=== PATIENT | female | born 1985 | race Caucasian/White ===

== ENCOUNTER 2018-04-18 21:57 | Emergency (ER) | payer OTHER ==
[~2018-04-18] VITALS: Ht 160 cm; Wt 64.6 kg
[2018-04-18 22:11] VITALS: BP 139/74
[2018-04-18] MEDS ORDERED: PREDNISONE PO STA (22:14)
[2018-04-18] MEDS ORDERED: PREDNISONE ONE (22:20)
--- NOTE | 2018-04-18 22:21 | ER.PDOC ---
General Chief Complaint: Skin Rash/Abscess Stated Complaint: RASH,POSS ALLERGIC REACTION Time seen by MD: 22:17 Source: patient Exam Limitations: no limitations History of Present Illness Initial Comments 33 year old white female with one week of pruritic rash. Generalized mild and spreading. No shortness of breath, not taking any new meds. Severity: mild Location: generalized Quality: itchy (initially) Identified Cause: no Prior symptoms/Treatment: Similar symptoms previous Allergies: Coded Allergies: Penicillins (Verified Allergy, Mild, Nausea, 11/27/15) cortisone (Verified Allergy, Mild, Hives, 11/27/15) Home Meds No Active Prescriptions or Reported Meds Past Medical History Medical History: asthma Surgical History: tubal LMP (females 10-50): tubal Social History Smoking: less than 1 pack/day Alcohol Use: occassionally Drug Use: none Constitutional: no symptoms reported EENTM: no symptoms reported Respiratory: no symptoms reported Cardiovascular: no symptoms reported Gastrointestinal: no symptoms reported Genitourinary: no symptoms reported Musculoskeletal: no symptoms reported Skin: see HPI Psychiatric/Neurological: no symptoms reported Endocrine: no symptoms reported Hematologic/Lymphatic: no symptoms reported Physical Exam General Appearance: alert, no distress Skin: nml color, skin rash (red raised generalized scaly psoriaform? ) Extremities: non-tender, nml ROM, no edema EENT: eyes nml inspection, lips/gums nml, pharynx nml Neck: trachea midline, no swelling Respiratory: no resp. distress, breath sounds nml CVS: reg. rate & rhythm, heart sounds nml Abdomen: non-tender, no organomegaly Rectal: non-tender NEURO/PSYCH: oriented x 3, CN's nml as tested, motor nml, sensation nml, mood/ affect nml Departure Time of Disposition: 22:19 Disposition: 01 HOME, SELF-CARE Impression: Primary Impression: Pityriasis Condition: Stable Referrals: PCP,UNKNOWN (PCP) PRIMARY CARE PROVIDER Additional Instructions: r/o psoriaform lesion Low dose prednisone and taper Follow up PCP RTER prn Scripts No Active Prescriptions or Reported Meds Duration or Time Spent with Pa: ALANA ALCARAZ MD Apr 18, 2018 22:21
[2018-04-18 22:42] VITALS: BP 139/74
== END 2018-04-18 22:35 | disposition home or self-care (01) ==
LOC: ER 21:57
DX: L21.0 Seborrhea capitis (principal); F17.200 Nicotine dependence, unspecified, uncomplicated; Z88.0 Allergy status to penicillin; Z88.8 Allergy status to other drugs, medicaments and biological substances
CPT/HCPCS: 99282; J7512

== ENCOUNTER 2018-06-16 08:39 | Emergency (ER) | payer OTHER ==
[~2018-06-16] VITALS: Ht 160 cm; Wt 59.0 kg
[2018-06-16 08:53] VITALS: BP 129/99
[2018-06-16] MEDS ORDERED: PREDNISONE PO STA (08:58)
[2018-06-16] MEDS ORDERED: DUONEB 0.5 MG-3 MG/3 ML SOLN IH STA (08:58)
--- NOTE | 2018-06-16 08:58 | ER.PDOC ---
General Chief Complaint: Cough/Congestion Stated Complaint: SOB Time seen by MD: 08:50 Source: patient Exam Limitations: no limitations History of Present Illness Initial Comments 33 y/o female with PMHx of asthma presents with cough, white/yellow sputum, no fever, no sinus congestion. Also mentions chest pain and back pain associated with cough. No known sick contact, no recent travel, states has been using inhaler at home w/o relief. Allergies: Coded Allergies: Penicillins (Verified Allergy, Mild, Nausea, 11/27/15) cortisone (Verified Allergy, Mild, Hives, 11/27/15) Home Meds No Active Prescriptions or Reported Meds Past Medical History Medical History: asthma Surgical History: tubal LMP (females 10-50): this week Social History Smoking: cigarettes, greater than 1 pack/day Alcohol Use: occassionally Drug Use: none Review of Systems Constitutional: denies chills, denies diaphoresis, denies fever EENTM: denies nose congestion; throat pain; denies throat swelling, denies mouth pain Respiratory: cough, shortness of breath, wheezing Cardiovascular: denies edema, denies syncope Gastrointestinal: denies abdominal pain, denies constipation, denies diarrhea, denies vomiting Genitourinary: denies dysuria, denies frequency, denies hematuria Musculoskeletal: denies joint swelling, denies muscle pain, denies muscle stiffness, denies neck pain Skin: see HPI All Other Systems: Reviewed and Negative Physical Exam Comments PHYSICAL EXAM: Vital Signs: please see electronic medical record. General: the patient is pleasant, resting comfortably, no obvious distress. HEENT: Patient normocephalic, atraumatic, PERRL. Moist mucous membranes. Eyes: No injection, no significant icterus, otherwise normal. Neck: Gross observation of the neck is unremarkable. Neck is supple, no cervical lymphadenopathy. Respiratory: Bilateral diffuse.... Cardiovascular: Regular rate and rhythm, no gallops, rubs or murmurs appreciated on this exam. GI: Abdomen is soft, nontender and nondistended without mass or hepatosplenomegaly. Neuro: The pt is awake. Alert and oriented. Grossly normal neurological exam. Psych: Normal Affect, normal speech. Skin: pt does has some small erythematous, non-pruritic lesions, no drainage MS: No obvious muscular asymmetry Results/Orders Results/Orders Administered Medications Medications (Trade) Dose Ordered Sig/Walter Route PRN Reason Start Time Stop Time Status Last Admin Dose Admin Albuterol/ Ipratropium (Duoneb 0.5 Mg-3 Mg/3 ml Soln) 3 ml STAT STAT IH 06/16/18 08:58 06/16/18 09:00 DC 06/16/18 09:29 Prednisone (Prednisone) 40 mg STAT STAT PO 06/16/18 08:58 06/16/18 09:00 DC 06/16/18 09:09 Ketorolac Tromethamine (Toradol) 30 mg STAT STAT IM 06/16/18 09:01 06/16/18 09:02 DC 06/16/18 09:09 Progress Progress Patient presents with appears to be a reactive airway disease exacerbation in the setting of an upper respiratory tract infection, likely viral. I see no evidence for pneumonia at this time. The patient did respond well to therapy and I feel it is reasonable to discharge the patient and undertake treatment on an outpatient basis. Patient was instructed to continue albuterol MDI/nebulizers and I have also administered a short course of prednisone. There is no evidence for more malignant etiology for the patients symptoms at this time. I discussed the possibility of more malignant covert etiologies with patient. Patient understands this possibility and will follow up immediately with worsening symptoms. The patient understands the importance of proper follow with primary physician. Departure Time of Disposition: 09:50 Disposition: 01 HOME, SELF-CARE Impression: Primary Impression: Chronic asthmatic bronchitis with acute exacerbation Additional Impression: Nausea Condition: Stable Referrals: PCP,UNKNOWN (PCP) PRIMARY CARE PROVIDER Scripts No Active Prescriptions or Reported Meds Duration or Time Spent with Pa: 15 Problem Qualifiers CLEMENTE GREENFIELD D0 Jun 16, 2018 08:57
[2018-06-16] MEDS ORDERED: TORADOL IM STA (09:01)
[2018-06-16] MEDS ORDERED: TORADOL ONE (09:03)
[2018-06-16] MEDS ORDERED: PREDNISONE ONE (09:04)
--- NOTE | 2018-06-16 09:24 | NUR ---
RAD PT TAKEN TO RAD
[2018-06-16] MEDS ORDERED: DUONEB 0.5 MG-3 MG/3 ML SOLN IH ONE (09:25)
--- NOTE | 2018-06-16 09:28 | NUR ---
RAD PT BACK FROM CT
[2018-06-16 09:29] VITALS: BP 129/99
--- NOTE | 2018-06-16 09:32 | DIREP ---
PROCEDURE:CHEST 2 VIEWS COMPARISON:None. INDICATIONS:Severe cough, adventitious lung sounds FINDINGS: LUNGS/PLEURA:No significant pulmonary parenchymal abnormalities. No effusion or pneumothorax. VASCULATURE:Normal. Unremarkable pulmonary vasculature. CARDIAC:Normal. No cardiac silhouette abnormality or cardiomegaly. MEDIASTINUM:Normal. No visible mass or adenopathy. BONES:Mild, left convexity, thoracic curvature, which may be positional. No acute abnormality. OTHER:Bra artifact overlies the chest. CONCLUSION: No acute cardiopulmonary abnormality. Dictated by: Mal Damon MD on 06/16/2018 at 09:30 AM
[2018-06-16] MEDS ORDERED: ZOFRAN ODT ONE (10:10)
--- NOTE | 2018-06-16 10:29 | NUR ---
DCD PT WAS ACCIDENTALLY DCD AT THE WRONG TIME. PT DCD @1030
== END 2018-06-16 09:25 ==
LOC: ER 08:39
DX: J44.1 Chronic obstructive pulmonary disease with (acute) exacerbation (principal); R11.0 Nausea; M54.9 Dorsalgia, unspecified; F17.210 Nicotine dependence, cigarettes, uncomplicated; Z88.0 Allergy status to penicillin; Z88.8 Allergy status to other drugs, medicaments and biological substances; Z98.51 Tubal ligation status
CPT/HCPCS: 71046; 94640; 96372; 99284; J1885; J7512; J7620; Q0162

== ENCOUNTER 2019-01-07 00:36 | Emergency (ER) | payer OTHER ==
[~2019-01-07] VITALS: Ht 160 cm; Wt 68.0 kg
[2019-01-07 00:40] VITALS: BP 130/80
[2019-01-07] MEDS ORDERED: LIDOCAINE 1% VIAL ONE (00:46)
[2019-01-07] MEDS ORDERED: EMLA CREAM TP ONE (00:47)
[2019-01-07] MEDS ORDERED: NORCO 10MG PO ONE (00:47)
--- NOTE | 2019-01-07 00:50 | NUR ---
[facility] CALLED [facility] AND PD WAS CALLED TO PATIENTS RESIDENCE AFTER INCIDENT. REPORT WAS MADE AT THAT TIME.
--- NOTE | 2019-01-07 00:58 | ER.PDOC ---
General Chief Complaint: Requesting Medical Care Stated Complaint: LIP LAC Time seen by MD: 01:00 Source: patient History of Present Illness Occurred: just prior to arrival Where: home Severity: mild Context: direct blow Associated Symptoms: No Loss of Consciousness Allergies: Coded Allergies: Penicillins (Verified Allergy, Mild, Nausea, 11/27/15) cortisone (Verified Allergy, Mild, Hives, 11/27/15) Home Meds No Active Prescriptions or Reported Meds Past Medical History Medical History: no pertinent history Surgical History: no surgical history, tubal Social History Drug Use: none Reviewed Nursing Reviewed: Vital Signs, Abn. Noted Review of Systems All Other Systems: Reviewed and Negative Physical Exam General Appearance: alert, no distress 1 - lac Neck: non-tender, painless ROM Eyes: lids nml, conjunctivae nml, PERRL, EOMI ENT: laceration, crossed fabiano border Neuro/Psych: oriented x 3, sensation nml, motor nml, CN's nml as tested, mood/ affect nml Respiratory: chest non-tender, no resp distress CVS: heart sounds nml, reg. rate & rhythm Abdomen: non-tender Skin: intact, nml palp ED LACERATION WOUND REPAIR Wound Length (cm): 1 Anesthesia type: local Anesthesia: 1% Lidocaine Wound's Depth, Shape: linear, into muscle Wound Explored: clean Suture Size/Type: 6:0, prolene Suture Style: simple Layer Closure?: No Retention sutures placed: No Results/Orders Results/Orders Orders - MICA GALVAN MD Neomycin/Bacitracin/Polymyxinb (Triple A (01/07/19 02:09) Vital Signs Date Time Temp Pulse Resp B/P (MAP) Pulse Ox O2 Delivery O2 Flow Rate FiO2 01/07/19 05:56 97.8 115 18 96 Room Air 01/07/19 05:39 18 01/07/19 05:28 97.8 115 18 97.8 01/07/19 05:28 97.8 115 18 96 Room Air 97.8 01/07/19 01:50 103 18 128/78 (95) 96 Room Air 01/07/19 00:40 97.8 115 18 130/80 (97) 96 Room Air 97.8 Course Duration or Total Time Spent w: 15 Vitals & review Data Vital Sign - Last 24 Hours 01/07/19 01/07/19 01/07/19 01/07/19 00:40 01:50 05:28 05:28 Temp 97.8 97.8 97.8 97.8 97.8 97.8 Pulse 115 103 115 115 Resp 18 18 18 18 B/P (MAP) 130/80 (97) 128/78 (95) Pulse Ox 96 96 96 O2 Delivery Room Air Room Air Room Air 01/07/19 01/07/19 05:39 05:56 Temp 97.8 Pulse 115 Resp 18 18 Pulse Ox 96 O2 Delivery Room Air Departure Time of Disposition: 01:33 Disposition: 01 HOME, SELF-CARE Impression: Primary Impression: Laceration Condition: Improved Referrals: PCP,UNKNOWN (PCP) PRIMARY CARE PROVIDER Scripts No Active Prescriptions or Reported Meds Duration or Time Spent with Pa: 1 hr MICA GALVAN MD Jan 07, 2019 00:58
--- NOTE | 2019-01-07 01:10 | NUR ---
UPDATE DR. GALVAN APPLIED EMLA CREAM TO LEFT SIDE OF UPPER LIP PRIOR TO SUTURING.
--- NOTE | 2019-01-07 01:20 | NUR ---
SUTURES DR. GALVAN APPLIED 4 SUTURES TO LEFT SIDE OF UPPER LIP LACERATION. CLEANED WOUND WITH NS AND GAUZE AND SURROUNDING SKIN. APPLIED NEOSPORIN PER PHYSICIAN ORDERS.
[2019-01-07 01:50] VITALS: BP 128/78
[2019-01-07] MEDS ORDERED: TRIPLE ANTIBIOTIC OINTMENT TP ONE (02:09)
[2019-01-07 05:56] VITALS: BP 130/80
== END 2019-01-07 02:10 | disposition home or self-care (01) ==
LOC: ER 00:36
DX: S01.511A Laceration without foreign body of lip, initial encounter (principal); Z88.0 Allergy status to penicillin; W22.03XA Walked into furniture, initial encounter; Y93.89 Activity, other specified; Y92.098 Other place in other non-institutional residence as the place of occurrence of the external cause; Y99.8 Other external cause status
CPT/HCPCS: 12011; 99283; J2001

== ENCOUNTER 2019-07-05 07:49 | Emergency (ER) | payer OTHER ==
[~2019-07-05] VITALS: Ht 160 cm; Wt 54.4 kg
[2019-07-05] MEDS ORDERED: SUBLIMAZE IV STA (07:55)
[2019-07-05] MEDS ORDERED: ZOFRAN IV STA (07:55)
[2019-07-05] MEDS ORDERED: PHENERGAN IV STA ×2 (07:57→08:55)
[2019-07-05 07:58] VITALS: BP 108/45
[2019-07-05] MEDS ORDERED: NS 1000ML 1,000 ML IV ONE ×2 (08:00→08:30)
--- NOTE | 2019-07-05 08:02 | ER.PDOC ---
General Chief Complaint: General Complaint Stated Complaint: abdominal pain Time seen by MD: 08:00 Source: patient Exam Limitations: no limitations History of Present Illness Timing/Duration: 4-6 hours Severity/Quality: moderate Radiation: periumbilical Allergies: Coded Allergies: Penicillins (Verified Allergy, Mild, Nausea, 11/27/15) cortisone (Verified Allergy, Mild, Hives, 11/27/15) Home Meds No Active Prescriptions or Reported Meds Vital Signs First Vital Signs Date Time Temp Pulse Resp B/P (MAP) Pulse Ox O2 Delivery O2 Flow Rate FiO2 07/05/19 07:49 98.4 78 22 99 Room Air 07/05/19 07:58 108/45 (66) Last Vital Signs Date Time Temp Pulse Resp B/P (MAP) Pulse Ox O2 Delivery O2 Flow Rate FiO2 07/05/19 07:58 98.4 78 22 108/45 (66) 99 Room Air Past Medical History Medical History: no pertinent history Surgical History: tubal LMP (females 10-50): last week Social History Smoking: greater than 1 pack/day Alcohol Use: heavy Drug Use: none Reviewed Nursing Reviewed: Vital Signs, Abn. Noted All Other Systems: Reviewed and Negative Physical Exam General Appearance: Anxious Neck: Non-Tender, Full Range of Motion, Supple, Normal Inspection Respiratory: chest non-tender, lungs clear, normal breath sounds, no respiratory distress, no accessory muscle use Cardiovascular: Tachycardia Gastrointestinal: Tenderness Back: Normal Inspection, No CVA Tenderness, No Vertebral Tenderness Extremities: Normal Range of Motion, Non-Tender, Normal Inspection, No Pedal Edema, No Calf Tenderness, Normal Capillary Refill, Pelvis Stable Neurologic/Psychiatric: subcontract manager II-XII NML as Tested, No Motor/Sensory Deficits, Alert, Normal Mood/Affect, Oriented x 3 Skin: Normal Color, Warm/Dry Lymphatic: No Adenopathy Results/Orders Results/Orders Orders - MICA GALVAN MD Cbc With Auto Diff (07/05/19 07:55) Comprehensive Metabolic Panel (07/05/19 07:55) Amylase (07/05/19 07:55) Lipase (07/05/19 07:55) Helicobacter Pylori (07/05/19 07:55) PT (07/05/19 07:55) Partial Thromboplastin Time. (07/05/19 07:55) Hcg Qualitative Serum (07/05/19 07:55) Urinalysis (07/05/19 07:55) Saline Lock (07/05/19 07:55) Fentanyl Citrate/Pf (Sublimaze) (07/05/19 07:55) Ondansetron Hcl (Zofran) (07/05/19 07:55) Drug Screen Medical(Ml) (07/05/19 07:55) 0.9 % Sodium Chloride (Ns 1000ml) (07/05/19 08:00) Promethazine Hcl (Phenergan) (07/05/19 07:57) Us Gallbladder (07/05/19 07:59) 0.9 % Sodium Chloride (Ns 25ml) (07/05/19 08:07) Famotidine/Pf (Pepcid) (07/05/19 08:30) 0.9 % Sodium Chloride (Ns 1000ml) (07/05/19 08:30) Stool Culture(Ml) (07/05/19 08:31) Clostridium Difficile Panel (07/05/19 08:32) Promethazine Hcl (Phenergan) (07/05/19 08:55) Famotidine/Pf (Pepcid) (07/05/19 08:58) 0.9 % Sodium Chloride (Ns 25ml) (07/05/19 08:58) Cocaine Confirm Ur (07/05/19 09:08) Urine Culture (07/05/19 09:08) Vital Signs Date Time Temp Pulse Resp B/P (MAP) Pulse Ox O2 Delivery O2 Flow Rate FiO2 07/05/19 07:58 98.4 78 22 108/45 (66) 99 Room Air 07/05/19 07:58 98.4 78 22 07/05/19 07:49 98.4 78 22 99 Room Air Administered Medications Medications (Trade) Dose Ordered Sig/Walter Route PRN Reason Start Time Stop Time Status Last Admin Dose Admin Famotidine (Pepcid) 20 mg STAT STAT IV 07/05/19 08:30 07/05/19 08:31 DC 07/05/19 09:16 20 MG Fentanyl Citrate (Sublimaze) 100 mcg STAT STAT IV 07/05/19 07:55 07/05/19 07:56 UNV 07/05/19 08:23 100 MCG Ondansetron HCl (Zofran) 4 mg STAT STAT IV 07/05/19 07:55 07/05/19 07:56 UNV 07/05/19 08:23 4 MG Promethazine HCl (Phenergan) 25 mg STAT STAT IV 07/05/19 08:55 07/05/19 08:56 UNV 07/05/19 09:16 25 MG Sodium Chloride 1,000 ml @ 0 mls/hr Q0M ONCE IV 07/05/19 08:00 07/05/19 08:01 UNV 07/05/19 08:23 1,000 MLS/HR Laboratory Tests Test 07/05/19 08:04 07/05/19 09:08 White Blood Count 8.3 10^3/uL (4.5-11.0) Red Blood Count 4.50 10^6/uL (4.00-5.20) Hemoglobin 15.6 g/dL (12.0-15.0) H Hematocrit 43.5 % (36.0-46.0) Mean Corpuscular Volume 96.7 fL (78-100) Mean Corpuscular Hemoglobin 34.7 pg (26-34) H Mean Corpuscular Hemoglobin Concent 35.9 g/dL (33-37) Red Cell Distribution Width 11.6 % (11.5-14.5) Platelet Count 280 10^3/uL (150-400) Mean Platelet Volume 9.7 fL (7.8-11.0) Neutrophils (%) (Auto) 63.1 % (41.0-85.0) Lymphocytes (%) (Auto) 29.7 % (24.0-44.0) Monocytes (%) (Auto) 6.7 % (5.0-12.0) Neutrophils # (Auto) 5.2 10^3/uL (1.8-7.7) Lymphocytes # (Auto) 2.5 10^3/uL (1.0-4.8) Monocytes # (Auto) 0.6 10^3/uL (0.3-0.8) Absolute Immature Granulocyte (auto 0.02 10^3 u/L (0-2) Immature Granulocytes % 0.20 % (0.00-0.50) Eosinophils % 0.1 % (0.0-5.0) Basophils % 0.2 % (0.0-0.2) Basophils # 0.0 10^3/uL (0.0-0.1) Eosinophil Count 0.0 10^3/uL (0.0-0.2) Prothrombin Time 10.4 SEC (9.4-11.5) Prothrombin Time INR (Non-Therap) 1.0 Activated Partial Thromboplast Time 23.6 SEC (24.67-30.72) Sodium Level 143 mmol/L (132-145) Potassium Level 3.7 mmol/L (3.6-5.2) Chloride Level 105.0 mmol/L (96-109) Carbon Dioxide Level 21.0 mmol/L (20.0-32) Anion Gap 20.7 Blood Urea Nitrogen 8 mg/dL (7-18) Creatinine 0.77 mg/dL (0.59-1.40) Estimated GFR () 103.2 (>/=60) BUN/Creatinine Ratio 10.0 Glucose Level 167 mg/dL (70-110) H Calcium Level 8.8 mg/dL (8.4-10.5) Total Bilirubin 0.3 mg/dL (0.2-1.0) Aspartate Amino Transferase (AST) 19 U/L (0-35) Alanine Aminotransferase (ALT) 22 U/L (12-78) Alkaline Phosphatase 67 U/L (50-136) Total Protein 7.2 g/dL (6.4-8.2) Albumin 4.1 g/dL (3.4-5.0) Globulin 3.1 Amylase Level 27 U/L (25-115) Lipase 57 U/L (114-286) L Serum HCG, Qualitative NEGATIVE (NEGATIVE) Helicobacter pylori Screen NEGATIVE (NEGATIVE) Urine Collection Type VOID Urine Color STRAW (YELLOW) Urine Appearance HAZY (CLEAR) H Urine Bilirubin NEGATIVE MG/DL (NEGATIVE) Urine Ketones NEGATIVE (NEGATIVE) Urine Specific [place] 1.010 (1.005-1.035) Urine pH 9 (5.0-6.0) Urine Protein NEGATIVE (NEGATIVE) Urine Urobilinogen NORMAL (NEGATIVE) Urine Nitrate POSITIVE (NEGATIVE) Urine Leukocyte Esterase NEGATIVE (NEGATIVE) Urine Blood NEGATIVE (NEGATIVE) Urine RBC 0-2 RBC/HPF (NONE SEEN) Urine WBC 0-2 WBC/HPF (0-2) Urine Squamous Epithelial Cells FEW #/HPF (FEW) Urine Bacteria MANY (NONE SEEN) H Urine Glucose NORMAL (NEGATIVE) Urine Opiates, Qualitative NEGATIVE ng/mL (CUT-OFF:300) Urine Methadone, Qualitative NEGATIVE ng/mL (CUT-OFF:300) Urine Amphetamine Qualitative NEGATIVE ng/mL (CUTOFF:1000) Urine Barbiturates, Qualitative NEGATIVE ng/mL (CUT-OFF:200) Urine Phencyclidine Screen NEGATIVE ng/mL (CUT-OFF:25) Urine MDMA (Ecstasy), Qualitative NEGATIVE ng/mL (CUT-OFF:300) Urine Benzodiazepines Screen NEGATIVE ng/mL (CUT-OFF:200) Urine Cocaine Qualitative POSITIVE ng/mL (CUT-OFF:300) Ur Tetrahydrocannabinol (THC) Scrn POSITIVE ng/mL (CUT-OFF:50) H Course Sepsis Screening Results: Posi: POSITIVE SEPSIS RISK Duration or Total Time Spent w: 1 hr Vitals & review Data Vital Sign - Last 24 Hours 07/05/19 07/05/19 07/05/19 07:49 07:58 07:58 Temp 98.4 98.4 98.4 Pulse 78 78 78 Resp 22 22 22 B/P (MAP) 108/45 (66) Pulse Ox 99 99 O2 Delivery Room Air Room Air Laboratory Tests Test 07/05/19 08:04 07/05/19 09:08 White Blood Count 8.3 10^3/uL Red Blood Count 4.50 10^6/uL Hemoglobin 15.6 g/dL Hematocrit 43.5 % Mean Corpuscular Volume 96.7 fL Mean Corpuscular Hemoglobin 34.7 pg Mean Corpuscular Hemoglobin Concent 35.9 g/dL Red Cell Distribution Width 11.6 % Platelet Count 280 10^3/uL Mean Platelet Volume 9.7 fL Neutrophils (%) (Auto) 63.1 % Lymphocytes (%) (Auto) 29.7 % Monocytes (%) (Auto) 6.7 % Neutrophils # (Auto) 5.2 10^3/uL Lymphocytes # (Auto) 2.5 10^3/uL Monocytes # (Auto) 0.6 10^3/uL Absolute Immature Granulocyte (auto 0.02 10^3 u/L Immature Granulocytes % 0.20 % Eosinophils % 0.1 % Basophils % 0.2 % Basophils # 0.0 10^3/uL Eosinophil Count 0.0 10^3/uL Prothrombin Time 10.4 SEC Prothrombin Time INR (Non-Therap) 1.0 Activated Partial Thromboplast Time 23.6 SEC Sodium Level 143 mmol/L Potassium Level 3.7 mmol/L Chloride Level 105.0 mmol/L Carbon Dioxide Level 21.0 mmol/L Anion Gap 20.7 Blood Urea Nitrogen 8 mg/dL Creatinine 0.77 mg/dL Estimated GFR () 103.2 BUN/Creatinine Ratio 10.0 Glucose Level 167 mg/dL Calcium Level 8.8 mg/dL Total Bilirubin 0.3 mg/dL Aspartate Amino Transf (AST/SGOT) 19 U/L Alanine Aminotransferase (ALT/SGPT) 22 U/L Alkaline Phosphatase 67 U/L Total Protein 7.2 g/dL Albumin 4.1 g/dL Globulin 3.1 Amylase Level 27 U/L Lipase 57 U/L Serum HCG, Qualitative NEGATIVE Helicobacter pylori Screen NEGATIVE Urine Collection Type VOID Urine Color STRAW Urine Appearance HAZY Urine Bilirubin NEGATIVE MG/DL Urine Ketones NEGATIVE Urine Specific [place] 1.010 Urine pH 9 Urine Protein NEGATIVE Urine Urobilinogen NORMAL Urine Nitrate POSITIVE Urine Leukocyte Esterase NEGATIVE Urine Blood NEGATIVE Urine RBC 0-2 RBC/HPF Urine WBC 0-2 WBC/HPF Urine Squamous Epithelial Cells FEW #/HPF Urine Bacteria MANY Urine Glucose NORMAL Urine Opiates, Qualitative NEGATIVE ng/mL Urine Methadone, Qualitative NEGATIVE ng/mL Urine Amphetamine Qualitative NEGATIVE ng/mL Urine Barbiturates, Qualitative NEGATIVE ng/mL Urine Phencyclidine Screen NEGATIVE ng/mL Urine MDMA (Ecstasy), Qualitative NEGATIVE ng/mL Urine Benzodiazepines Screen NEGATIVE ng/mL Urine Cocaine Qualitative POSITIVE ng/mL Ur Tetrahydrocannabinol (THC) Scrn POSITIVE ng/mL Current Medications Medications (Trade) Dose Ordered Sig/Walter PRN Reason Start Time Stop Time Status Last Admin Fentanyl Citrate (Sublimaze) 100 mcg STAT STAT 07/05/19 07:55 07/05/19 07:56 UNV 07/05/19 08:23 Ondansetron HCl (Zofran) 4 mg STAT STAT 07/05/19 07:55 07/05/19 07:56 UNV 07/05/19 08:23 Promethazine HCl (Phenergan) 25 mg STAT STAT 07/05/19 08:55 07/05/19 08:56 UNV 07/05/19 09:16 Sepsis Infection Criteria Pres: None O2 Sat by Pulse Oximetry: 99 Departure Time of Disposition: 11:11 Disposition: 01 HOME, SELF-CARE Impression: Primary Impression: Cannabinoid hyperemesis syndrome Additional Impression: Biliary sludge Condition: Improved Referrals: PCP,UNKNOWN (PCP) PRIMARY CARE PROVIDER Scripts No Active Prescriptions or Reported Meds Duration or Time Spent with Pa: 20 M Problem Qualifiers MICA GALVAN MD Jul 05, 2019 08:02
[2019-07-05] MEDS ORDERED: ZOFRAN ONE (08:06)
[2019-07-05] MEDS ORDERED: NS 1000ML 1,000 ML ONE (08:06)
[2019-07-05] MEDS ORDERED: PHENERGAN ONE (08:07)
[2019-07-05] MEDS ORDERED: NS 25ML 25 ML IV ONE ×2 (08:07→08:58)
[2019-07-05] MEDS ORDERED: SUBLIMAZE ONE (08:07)
[2019-07-05 08:10] LABS: BASOPHIL % 0.2 % (0.0-0.2); EOSINOPHIL % 0.1 % (0.0-5.0); HEMOGLOBIN 15.6 g/dL (12.0-15.0); LYMPHOCYTES # 2.5 10^3/uL (1.0-4.8); LYMPHOCYTES % 29.7 % (24.0-44.0); MEAN CELL HGB 34.7 pg (26-34); MEAN CELL HGB CONCENTRATION 35.9 g/dL (33-37); MEAN CORP VOLUME 96.7 fL (78-100); MEAN PLATELET VOLUME 9.7 fL (7.8-11.0); MONOCYTES # 0.6 10^3/uL (0.3-0.8); MONOCYTES % 6.7 % (5.0-12.0); NEUTROPHIL # 5.2 10^3/uL (1.8-7.7); NEUTROPHILS % 63.1 % (41.0-85.0); RED CELL DISTRIBUTION WIDTH 11.6 % (11.5-14.5); WHITE BLOOD CELL 8.3 10^3/uL (4.5-11.0)
[2019-07-05 08:28] LABS: CALCIUM 8.8 mg/dL (8.4-10.5)
[2019-07-05 08:29] LABS: HCG QUALITATIVE -RESTRICTLAB NEGATIVE (NEGATIVE)
[2019-07-05] MEDS ORDERED: PEPCID IV STA (08:30)
[2019-07-05] MEDS ORDERED: PEPCID IV ONE (08:58)
[2019-07-05 09:00] VITALS: BP 125/79
--- NOTE | 2019-07-05 09:16 | DIREP ---
PROCEDURE:US ABDOMEN LIMITED(SINGLE ORGAN-QUAD) COMPARISON:CT, CT ABD/PELVIS W/O, 11/27/2015, 11:[address], [address]-ABDOMEN /PELVIS W/O CONTRAST, 11/06/2012, 07:20 PM. INDICATIONS:umbilical area pain, N/V, DIZZY TECHNIQUE: High resolution sonographic examination was performed of the abdomen. FINDINGS: CBD:0.3 cm GALLBLADDER:0.3 cm RIGHT KIDNEY:10.8 x 5.3 x 4.9 cm PANCREAS:Head and body within normal limits. Tail obscured by overlying bowel gas. LIVER:Normal hepatic parenchymal architecture. GALLBLADDER:Sludge within the dependent portion. No shadowing stones, wall thickening, or pericholecystic fluid. BILIARY:There is no biliary ductal dilatation. RIGHT KIDNEY:Normal. No hydronephrosis. OTHER:Negative. No ascites is identified. CONCLUSION: 1. Gallbladder sludge without evidence of cholelithiasis, wall thickening, or pericholecystic fluid. Dictated by: CARAA Physician on 07/05/2019 at 09:07 AM ld
[2019-07-05 09:26] LABS: BILIRUBIN,URINE NEGATIVE (NEGATIVE); UROBILINOGEN,URINE NORMAL (NEGATIVE)
[2019-07-05 09:38] LABS: APPEARANCE,URINE HAZY (CLEAR); UA COLOR STRAW (YELLOW)
[2019-07-05 10:00] VITALS: BP 110/75
[2019-07-05 10:49] VITALS: BP 136/94
== END 2019-07-05 10:49 | disposition home or self-care (01) ==
LOC: ER 07:49
DX: F12.188 Cannabis abuse with other cannabis-induced disorder (principal); F17.210 Nicotine dependence, cigarettes, uncomplicated; Z79.899 Other long term (current) drug therapy; Z88.0 Allergy status to penicillin
CPT/HCPCS: 36415; 76705; 80053; 80307; 80349; 80353; 81000; 82150; 83690; 84703; 85025; 85610; 85730; 86677; 87077; 87086; 87186; 96374; 96375; 99285; J2405; J2550; J3010; J3490; J7030

== ENCOUNTER → 2020-09-11 | Outpatient (CLI) | payer OTHER ==
[2020-09-11 13:53] LABS: BASOPHIL % 0.3 % (0.0-0.2); EOSINOPHIL # 0.1 10^3/uL (0.0-0.2); EOSINOPHIL % 0.8 % (0.0-5.0); LYMPHOCYTES # 1.94 10^3/uL1 (1.0-4.8); LYMPHOCYTES % 30.6 % (24.0-44.0); MEAN CORP HGB 34.1 pg (26-34); MONOCYTES # 0.6 10^3/uL (0.3-0.8); MONOCYTES % 9.8 % (5.0-12.0); NEUTROPHIL # 3.7 10^3/uL (1.8-7.7); NEUTROPHILS % 58.3 % (41.0-85.0); PLATELET COUNT 233 10^3/uL (150-400); RED CELL DISTRIBUTION WIDTH 11.7 % (11.5-14.5)
[2020-09-11 14:06] LABS: CALCIUM 8.7 mg/dL (8.4-10.5); CARBON DIOXIDE 23.4 mmol/L (20.0-32)
== END | disposition home or self-care (01) ==
LOC: NPLAB 11:25
PROVIDERS: ATTEND Nurse Practitioner Women's Health
DX: E55.9 Vitamin D deficiency, unspecified (principal); Z68.23 Body mass index [BMI] 23.0-23.9, adult; Z72.51 High risk heterosexual behavior
CPT/HCPCS: 36415; 80053; 80061; 82306; 83036; 84439; 84443; 85025; 86318; 86592

== ENCOUNTER 2021-03-01 12:53 | Emergency (ER) | payer OTHER ==
[~2021-03-01] VITALS: Ht 160 cm; Wt 54.4 kg
--- NOTE | 2021-03-01 14:00 | NUR ---
[facility]IV[facility] PT ARRIVED TO ED WITH C/O NAUSEA, VOMITTING AND DIARRHEA SINCE 0300. BEDSIDE MONITORS APPLIED. VITAL SIGNS STABLE BED IN LOW LOCKED POSITION. PT REPORTS SHE MAY HAVE ATE SOME BAD BEANS THAT WERE LEFT OUT FOR 2 DAYS.
[2021-03-01 14:10] VITALS: BP 125/77
[2021-03-01 14:16] VITALS: BP 125/77
[2021-03-01] MEDS ORDERED: TORADOL IV STA (14:26)
[2021-03-01] MEDS ORDERED: ZOFRAN IV STA (14:26)
[2021-03-01] MEDS ORDERED: NS 1000ML 1,000 ML IV ONE (14:30)
[2021-03-01] MEDS ORDERED: TORADOL ONE (14:31)
[2021-03-01] MEDS ORDERED: ZOFRAN ONE (14:31)
[2021-03-01 14:32] LABS: BASOPHIL % 0.2 % (0.0-0.2); EOSINOPHIL % 0.3 % (0.0-5.0); LYMPHOCYTES # 0.69 10^3/uL1 (1.0-4.8); MEAN CORP HGB 34.2 pg (26-34); MONOCYTES # 0.5 10^3/uL (0.3-0.8); MONOCYTES % 5.9 % (5.0-12.0); NEUTROPHIL # 7.4 10^3/uL (1.8-7.7); NEUTROPHILS % 85.6 % (41.0-85.0); PLATELET COUNT 255 10^3/uL (150-400); RED CELL DISTRIBUTION WIDTH 11.5 % (11.5-14.5)
--- NOTE | 2021-03-01 14:32 | ER.PDOC ---
General Chief Complaint: Nausea,Vomiting,Diarrhea Stated Complaint: ABD PAIN,N/V Time seen by MD: 14:15 Source: patient Exam Limitations: no limitations History of Present Illness Initial Comments This is a 35-year-old female who states that last night about 9 PM she ate arriaza beans that had been left out for many hours at room temperature. She went to be d and awoke 5 hours later to in the morning with profuse nausea vomiting and diarrhea. Those symptoms have continued along with abdominal cramps and she is now just dry heaving. Allergies: Coded Allergies: Penicillins (Verified Allergy, Mild, Nausea, 11/27/15) cortisone (Verified Allergy, Mild, Hives, 11/27/15) Home Meds No Active Prescriptions or Reported Meds Vital Signs First Vital Signs Date Time Temp Pulse Resp B/P (MAP) Pulse Ox O2 Delivery O2 Flow Rate FiO2 03/01/21 14:10 98.0 78 16 100 03/01/21 14:10 125/77 (93) Room Air Last Vital Signs Date Time Temp Pulse Resp B/P (MAP) Pulse Ox O2 Delivery O2 Flow Rate FiO2 03/01/21 15:16 98.0 79 16 122/75 (91) 100 Room Air Past Medical History Medical History: no pertinent history Surgical History: tubal Social History Smoking: non-smoker Alcohol Use: occassionally Drug Use: marijuana Constitutional: denies chills, denies fever EENTM: denies eye pain, denies double vision Respiratory: denies cough, denies shortness of breath Cardiovascular: denies chest pain, denies syncope Gastrointestinal: abdominal pain, diarrhea, vomiting Genitourinary: denies dysuria, denies hematuria Musculoskeletal: denies back pain, denies joint pain Skin: denies lesions, denies rash Psychiatric/Neurological: denies anxiety, denies depressed Endocrine: denies increased thrist, denies increased urine Hematologic/Lymphatic: denies easy bleeding, denies easy bruising Physical Exam General Appearance: Moderate Distress, Other (Lying on her side on the gurney appearing nauseated and with a basin with a small amount of vomitus in it) HEENT: PERRL/EOMI, Normal ENT Inspection, Pharynx Normal Neck: Supple, Normal Inspection Respiratory: lungs clear, normal breath sounds, no respiratory distress Cardiovascular: Normal Peripheral Pulses, Regular Rate, Rhythm, No Murmur Gastrointestinal: Normal Bowel Sounds, Tenderness (Mild diffuse generalized tenderness without rebound) Back: Normal Inspection Extremities: Normal Range of Motion, Non-Tender 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, No Motor/Sensory Deficits, Alert, Normal Mood/Affect, Oriented x 3 Skin: Normal Color, Warm/Dry Lymphatic: No Adenopathy Results/Orders Results/Orders Orders - TRUNG GRIFFIN MD Cbc With Auto Diff (03/01/21 14:26) Comprehensive Metabolic Panel (03/01/21 14:26) Saline Lock (03/01/21 14:26) 0.9 % Sodium Chloride (Ns 1000ml) (03/01/21 14:30) Ketorolac Tromethamine (Toradol) (03/01/21 14:26) Ondansetron Hcl/Pf (Zofran) (03/01/21 14:26) Ondansetron Hcl/Pf (Zofran) (03/01/21 14:31) Ketorolac Tromethamine (Toradol) (03/01/21 14:31) Promethazine Hcl (Phenergan) (03/01/21 15:32) 0.9 % Sodium Chloride (Ns 100ml) (03/01/21 15:33) Vital Signs Date Time Temp Pulse Resp B/P (MAP) Pulse Ox O2 Delivery O2 Flow Rate FiO2 03/01/21 15:16 98.0 79 16 122/75 (91) 100 Room Air 03/01/21 14:16 98.0 78 16 03/01/21 14:10 98.0 78 16 125/77 (93) 100 Room Air 03/01/21 14:10 98.0 78 16 100 Administered Medications Medications (Trade) Dose Ordered Sig/Walter Route PRN Reason Start Time Stop Time Status Last Admin Dose Admin Ketorolac Tromethamine (Toradol) 30 mg OT STAT IV 03/01/21 14:26 03/01/21 14:29 DC 03/01/21 14:37 30 MG Ondansetron HCl (Zofran) 8 mg OT STAT IV 03/01/21 14:26 03/01/21 14:29 DC 03/01/21 14:37 8 MG Sodium Chloride 1,000 ml @ 999 mls/hr Q1H1M ONCE IV 03/01/21 14:30 03/01/21 15:30 DC 03/01/21 14:37 999 MLS/HR Laboratory Tests Test 03/01/21 14:07 White Blood Count 8.6 10^3/uL (4.5-11.0) Red Blood Count 4.86 10^6/uL (4.00-5.20) Hemoglobin 16.6 g/dL (12.0-15.0) H Hematocrit 47.5 % (36.0-46.0) H Mean Corpuscular Volume 97.7 fL (78-100) Mean Corpuscular Hemoglobin 34.2 pg (26-34) H Mean Corpuscular Hemoglobin Concent 34.9 g/dL (33-36.5) Red Cell Distribution Width 11.5 % (11.5-14.5) Platelet Count 255 10^3/uL (150-400) Mean Platelet Volume 9.5 fL (7.8-11.0) Neutrophils (%) (Auto) 85.6 % (41.0-85.0) H Lymphocytes (%) (Auto) 8.0 % (24.0-44.0) L Monocytes (%) (Auto) 5.9 % (5.0-12.0) Neutrophils # (Auto) 7.4 10^3/uL (1.8-7.7) Lymphocytes # (Auto) 0.69 10^3/uL1 (1.0-4.8) L Monocytes # (Auto) 0.5 10^3/uL (0.3-0.8) Absolute Immature Granulocyte (auto 0 10^3 u/L (0-2) Absolute Eosinophils (auto) 0.0 10^3/uL (0.0-0.2) Immature Granulocytes % 0.00 % (0.00-0.50) Eosinophils % 0.3 % (0.0-5.0) Basophils % 0.2 % (0.0-0.2) Basophils # 0.0 10^3/uL (0.0-0.1) Sodium Level 136 mmol/L (132-145) Potassium Level 3.8 mmol/L (3.6-5.2) Chloride Level 102.0 mmol/L (96-109) Carbon Dioxide Level 21.0 mmol/L (20.0-32) Anion Gap 16.8 Blood Urea Nitrogen 13 mg/dL (7-18) Creatinine 0.79 mg/dL (0.59-1.40) Estimated GFR () 99.6 (>/=60) Est GFR (CKD-EPI)(Non-Afr Prydeinig) 82.3 (>/=60) BUN/Creatinine Ratio 16.0 Glucose Level 132 mg/dL (70-110) H Calcium Level 9.0 mg/dL (8.4-10.5) Total Bilirubin 0.7 mg/dL (0.2-1.0) Aspartate Amino Transferase (AST) 14 U/L (0-35) Alanine Aminotransferase (ALT) 23 U/L (12-78) Alkaline Phosphatase 73 U/L (50-136) Total Protein 7.7 g/dL (6.4-8.2) Albumin 4.2 g/dL (3.4-5.0) Globulin 3.5 Albumin/Globulin Ratio 1.200 Progress Progress 1615: Nausea, vomiting, diarrhea and abdominal cramping resolved. Patient appears comfortable and states she feels improved. ER DEPART Departure Time of Disposition: 16:19 Disposition: 01 HOME / SELF CARE / HOMELESS Impression: Primary Impression: Food poisoning Additional Impression: Nausea & vomiting Condition: Stable Patient Instructions: Food Poisoning, Nausea and Vomiting Referrals: JEAN PIERRE VEE LEATHER LEVELER (PCP) PRIMARY CARE PROVIDER Scripts No Active Prescriptions or Reported Meds Duration or Time Spent with Pa: 10 Problem Qualifiers TRUNG GRIFFIN MD March 01, 2021 14:32
[2021-03-01 15:16] VITALS: BP 122/75
[2021-03-01] MEDS ORDERED: PHENERGAN ONE (15:32)
[2021-03-01] MEDS ORDERED: NS 100ML 100 ML IV ONE (15:33)
== END 2021-03-01 16:14 | disposition home or self-care (01) ==
LOC: ER 12:53
DX: A05.9 Bacterial foodborne intoxication, unspecified (principal); R11.2 Nausea with vomiting, unspecified; Z79.1 Long term (current) use of non-steroidal anti-inflammatories (NSAID); Z79.899 Other long term (current) drug therapy; Z88.0 Allergy status to penicillin
CPT/HCPCS: 36415; 80053; 85025; 96361; 96374; 96375; 99284; J1885; J2405; J2550